=== PATIENT | female | born 1985 | race Caucasian/White ===

== ENCOUNTER 2020-11-07 10:49 | Emergency (ER) | payer OTHER ==
[~2020-11-07 10:49] MED LIST: PERCOCET 5/3251 TAB PO; PRENATAL TABLE1 EAC1 PO; ZOFRAN4 MG PO
[2020-11-07 11:30] LABS: BASOPHIL 0.5 % (0-2); EOSINOPHIL 1.5 % (0-5); HCT 38.1 % (37.0-47.0); HGB 12.7 g/dl (12.5-16.0); LYMPHOCYTE 20.3 % (15-48); MCH 30.1 pg (25.0-31.0); MCHC 33.3 g/dL (32.0-36.0); MCV 90.3 fL (78.0-100.0); MONOCYTE 6.5 % (0-12); MPV 11.5 fL (6.0-9.5); NEUTROPHIL 70.9 % (41-80); NRBC 0; PLT 260 K/uL (150-400); RBC 4.22 M/uL (4.20-5.40); RDW 12.1 % (11.5-14.0); WBC 9.5 K/uL (4.0-10.5)
[2020-11-07 11:48] LABS: ALBUMIN 3.7 g/dL (3.4-5.0); BILIRUBIN - TOTAL 0.3 mg/dL (0.2-1.0); BUN/CREAT RATIO (CALC) 10.7 RATIO; CREATININE 0.75 mg/dL (0.51-0.95); GLOBULIN (CALCULATION) 3.8 g/dL; POTASSIUM 3.8 mmol/L (3.5-5.1); TOTAL PROTEIN 7.5 g/dL (6.4-8.2)
[2020-11-07 12:37] LABS: BILIRUBIN NEGATIVE (NEGATIVE); BLOOD 3+ Ery/uL (NEGATIVE); CLARITY HAZY (CLEAR); COLOR YELLOW (YELLOW); GLUCOSE (U) NORMAL (NORMAL); LEUKOCYTES 3+ Leu/uL (NEGATIVE); NITRITE NEGATIVE (NEGATIVE); PROTEIN TRACE (LOW) mg/dL (NEGATIVE); UROBILINOGEN 0.2 mg/dL (0.2-1.0); pH 5.5 (5.0-9.0)
[2020-11-07 12:45] LABS: BACTERIA 1+; SQUAMOUS EPITHELIAL CELLS 20-50; URINARY WBC 20-50
[2020-11-07] MEDS ORDERED: NORCO 5-325 TA1 EACH PO (16:20)
[2020-11-07] MEDS ORDERED: BACTRIM DS TAB1 EACH PO (16:20)
[2020-11-07] MEDS ORDERED: ONDANSETRON ODT4 MG PO (16:20)
== END 2020-11-07 16:39 | disposition home or self-care (01) ==
LOC: FER 10:49
PROVIDERS: Emergency Medicine
DX: N39.0 Urinary tract infection, site not specified (principal); Z88.0 Allergy status to penicillin
CPT/HCPCS: 36415; 80053; 81001; 82150; 83690; 85025; 87088; J1885; J1956; J2405; J7030; J7040; Q9967